=== PATIENT | female | born 1985 | race Caucasian/White ===

== ENCOUNTER 2019-09-13 17:15 | Emergency (ER) | payer SELFPAY ==
--- NOTE | 2019-09-13 17:24 | ER Document Report ---
ED Psych Disorder / Suicide - General Chief Complaint: Psych Problem Stated Complaint: PSYCH EVAL Time Seen by Provider: 09/13/19 17:23 Primary Care Provider: JIMI MARS MD [COMMUNITY BASED STAFF] - Follow up as needed Mode of Arrival: Medic Information source: Law Enforcement - HPI Notes: 34-year-old female presents to the emergency room via Phlebotomist's office for complaints of self-harm, banging her head against the padded wall, refusing to drink or eat in the last 2 days she is been incarcerated under felony warrant from [place] needs to be extradited back to [place]. Patient is currently in [facility]. Patient admitted to using methamphetamine and cocaine use approximately 2 days ago. Patient states she has not eaten any food and 16 days or had not drank any water the last 16 days. denies fevers, chills, chest pain,palpitations, shortness of breath, dyspnea, nausea, vomiting, diarrhea, abdominal pain, hematuria,blurred vision, double vision, loss of vision, speech changes, LH, dizziness, syncope, headaches, wheezing, ST, URI, neck pain, weakness, bowel or bladder dysfunction, saddle anesthesia, numbness or tingling in bilateral upper or lower extremities equally, muscle paralysis, weakness in bilateral upper or lower extremities equally or rash. - Related Data Allergies/Adverse Reactions: latex Allergy (Verified 09/13/19 17:57) Penicillins Allergy (Verified 09/13/19 17:56) Sulfa (Sulfonamide Antibiotics) Allergy (Verified 09/13/19 17:57) Past Medical History - Social History Smoking Status: Unknown if Ever Smoked Family History: Reviewed & Not Pertinent Review of Systems - Review of Systems Constitutional: See HPI EENT: No symptoms reported Cardiovascular: No symptoms reported Respiratory: No symptoms reported Gastrointestinal: No symptoms reported Genitourinary: No symptoms reported Female Genitourinary: No symptoms reported Musculoskeletal: No symptoms reported Skin: No symptoms reported Hematologic/Lymphatic: No symptoms reported Neurological/Psychological: See HPI, Suicidal ideation Physical Exam - Vital signs Vitals: Temp Pulse BP Pulse Ox 98.1 F 86 137/84 H 100 09/13/19 17:52 09/13/19 17:52 09/13/19 17:52 09/13/19 17:52 - Notes Notes: PHYSICAL EXAMINATION: reviewed vital signs by RN GENERAL: Well-appearing, well-nourished and in no acute distress. HEAD: Atraumatic, normocephalic. EYES: Pupils equal round and reactive to light, extraocular movements intact, conjunctiva are normal. ENT: Nares patent, oropharynx clear without exudates. Moist mucous membranes. NECK: Normal range of motion, supple without lymphadenopathy LUNGS: Breath sounds clear to auscultation bilaterally and equal. No wheezes rales or rhonchi. HEART: Regular rate and rhythm without murmurs ABDOMEN: Soft, nontender, nondistended abdomen. No guarding, no rebound. No masses appreciated. Female : deferred Musculoskeletal: Normal range of motion, no pitting or edema. No cyanosis. NEUROLOGICAL: Cranial nerves grossly intact. Normal speech, normal gait. Normal sensory, motor exams PSYCH: Normal mood, normal affect. SKIN: Warm, Dry, normal turgor, no rashes or lesions noted. Course - Re-evaluation Re-evalutation: 09/13/19 18:19 Afebrile vital stable with labile moods from refusing medical treatment to agreeing with medical treatment. CBC negative for any leukocytosis or anemia, CMP negative for any hepatic or renal dysfunction, no electrolyte disturbances. patient has been drinking p.o. fluids without any issues. Patient's serum glucose did come back at 63, patient was offered glucagon and recheck her Accu- Chek. Patient was adamantly refusing any treatment, patient reported I am "not fkristen taking anything that you guys are giving me, I want to leave". EKG negative for acute STEMI, no ST segment elevations. Mental health team has been at bedside to evaluate patient and did not feel that patient was actively suicidal in which she would need IVC, was cleared from mental health team for any further mental health needs from the emergency room and understanding that she will be going back to incarceration which there are nurses as well as mental health resources available. After much discussion with reporting to patient that she does need to be entering to maintain her blood sugar although is only slightly abnormal, advised to drink orange juice, suck on candy, eat food but help increase it. Again patient adamantly refused to do so. Due to the fact the patient is not IVC'd, she does have the right to refuse medical treatment. after performing a Medical Screening Examination, I spoke with the patient at length in regards to leaving the hospital against medical advice. I do not believe the patient should leave but the patient is alert oriented x4, understands the risks and benefits of staying and leaving including disability and . Pt understands that he can return at any time for further care and is more than welcome to do so. Pt verbalizes this understanding. Patient refused, refused all medical treatment. Patient left with Phlebotomist's office to be transported back to [facility] in which she will be incarcerated and extradited back to [place] for felony charges. - Vital Signs Vital signs: Temp Pulse Resp BP Pulse Ox 98.1 F 86 137/84 H 100 09/13/19 17:52 09/13/19 17:52 09/13/19 17:52 09/13/19 17:52 - Laboratory Result Diagrams: 09/13/19 17:47 09/13/19 17:47 Laboratory results interpreted by me: 09/13/19 09/13/19 17:47 17:47 RDW 15.4 H Carbon Dioxide 20 L Glucose 63 L Salicylates < 1.0 L Acetaminophen < 10 L Discharge - Discharge Clinical Impression: Suicidal ideation, Agitation, Hypoglycemia Condition: Stable Disposition: AGAINST MEDICAL ADVICE Instructions: Suicidal Ideation ([facility]), Hypoglycemia ([facility]) Additional Instructions: your EKG was normal. Your lab work was normal today besides you had very slight low blood sugar. You were offered glucagon however you refused, you were offered refusing which you refused. Advised to please drink and eat. Please return if your symptoms are becoming worse. You are leaving AGAINST MEDICAL ADVICE. Follow up with primary care provider, call tomorrow to make followup appointment. Referrals: JIMI AMRS MD [COMMUNITY BASED STAFF] - Follow up as needed
[2019-09-13 17:53] VITALS: BP 137/84
[2019-09-13 18:08] LABS: ABSOLUTE BASOPHILS # (AUTO) 0.1 10^3/uL (0.0-0.2); ABSOLUTE EOSINOPHILS # (AUTO) 0.1 10^3/uL (0.0-0.6); ABSOLUTE LYMPHOCYTES (AUTO) 2.1 10^3/uL (0.5-4.7); ABSOLUTE MONOCYTES (AUTO) 0.5 10^3/uL (0.1-1.4); ABSOLUTE NEUT (AUTO) 3.3 10^3/uL (1.7-8.2); EOSINOPHILS % (AUTO) 1.9 % (0-6); HEMATOCRIT 44.1 % (36.0-47.0); HEMOGLOBIN 14.7 g/dL (12.0-15.5); LYMPHOCYTES % (AUTO) 34.5 % (13-45); MEAN CORPUSCULAR HEMOGLOBIN 29.1 pg (27.0-33.4); MEAN CORPUSCULAR HGB CONC 33.4 g/dL (32.0-36.0); MEAN CORPUSCULAR VOLUME 87 fl (80-97); MONOCYTES % (AUTO) 8.1 % (3-13); PLATELET COUNT 301 10^3/uL (150-450); RED BLOOD COUNT 5.06 10^6/uL (3.72-5.28); RED CELL DISTRIBUTION WIDTH 15.4 % (11.5-14.0); SEGMENTED NEUTROPHILS % (AUTO) 54.5 % (42-78); TOTAL CELLS COUNTED % (AUTO) 100 %; WHITE BLOOD COUNT 6.2 10^3/uL (4.0-10.5)
[2019-09-13 18:29] LABS: ALBUMIN 4.6 g/dL (3.5-5.0); ALKALINE PHOSPHATASE 93 U/L (38-126); ANION GAP 18 (5-19); ASPARTATE AMINO TRANSFERASE 18 U/L (14-36); BILIRUBIN,DIRECT 0.2 mg/dL (0.0-0.4); BILIRUBIN,TOTAL 0.7 mg/dL (0.2-1.3); BLOOD UREA NITROGEN 11 mg/dL (7-20); CALCIUM 10.1 mg/dL (8.4-10.2); CARBON DIOXIDE 20 mmol/L (22-30); CHLORIDE 107 mmol/L (98-107); POTASSIUM 4.1 mmol/L (3.6-5.0); TOTAL PROTEIN 7.6 g/dL (6.3-8.2)
[2019-09-13 18:45] LABS: ACETAMINOPHEN < 10 ug/mL (10-30); ALCOHOL < 10 mg/dL (NONE DETECTED); GLUCOSE 63 mg/dL (75-110); SALICYLATE < 1.0 mg/dL (2.0-20.0)
[2019-09-13] MEDS ORDERED: DEXTROSE 40% GEL 15 GM TUBE PO ONE (18:50)
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
--- NOTE | 2019-09-13 20:13 | EKG REPORT ---
SEVERITY:- NORMAL ECG - SINUS RHYTHM : Confirmed by: Tonia Wells MD 13-Sep-2019 20:13:34
== END 2019-09-13 19:12 | disposition left against medical advice (07) ==
LOC: ER 17:15
DX: R45.851 Suicidal ideations (principal); R45.1 Restlessness and agitation; E16.2 Hypoglycemia, unspecified; Z91.040 Latex allergy status; Z88.0 Allergy status to penicillin; Z88.2 Allergy status to sulfonamides; Z53.20 Procedure and treatment not carried out because of patient's decision for unspecified reasons
CPT/HCPCS: 36415; 80053; 80307; 85025; 93005; 93010